=== PATIENT | female | born 1945 | race Caucasian/White ===

== ENCOUNTER 2019-09-03 14:52 | Emergency (ER) | payer SELFPAY ==
[~2019-09-03] VITALS: Ht 157.5 cm; Wt 61.7 kg
[2019-09-03 15:11] VITALS: BP 136/63
--- NOTE | 2019-09-03 15:15 | NUR ---
WAIT AT LOBBY.
--- NOTE | 2019-09-03 15:49 | NUR ---
PT WHEELCHAIR ASSISTED TO BED WITH GRANDDAUGHTER
--- NOTE | 2019-09-03 16:04 | NUR ---
BIB GRAND DAUGHTER C/O LEFT ANKLE PAIN/ SWELLING S/P FALL THIS MORNING. PT DENIES HITTING HEAD/LOC. PT STATES SHE "ROLLED HER ANKLE" AND FELL AT HOME. LEFT ANKLE IS SWOLLEN AND TENDER TO TOUCH. SKIN DRY AND IN TACT. NO REDNESS, ECCHYMOSIS NOTED. PT UNABLE TO BEAR WEIGHT ON LEFT LEG. PT REPORTS TO HAVE TAKEN TYLENOL ABOUT 4 HOURS AGO. NO PMH ALLERGIES: PENECILLIN
--- NOTE | 2019-09-03 16:35 | NUR ---
L ANKLE STIRRUP PLACED BY EMT. CRUTCHES GIVEN BY EMT. PT VERBALIZED UNDERSTANDING OF INSTRUCTION.
[2019-09-03 17:11] VITALS: BP 124/66
--- NOTE | 2019-09-03 17:12 | NUR ---
Patient discharged with v/s stable. Written and verbal after care instructions given and explained. Patient alert, oriented and verbalized understanding of instructions. Wheel Chair Assisted with to car. All questions addressed prior to discharge. ID band removed. Patient advised to follow up with PMD.NO Rx given. Patient educated on indication of medication including possible reaction and side effects. Opportunity to ask questions provided and answered.
== END 2019-09-03 17:12 | disposition home or self-care (01) ==
LOC: MED 14:52
DX: S93.402A Sprain of unspecified ligament of left ankle, initial encounter (principal); Z90.49 Acquired absence of other specified parts of digestive tract; Z88.0 Allergy status to penicillin; W19.XXXA Unspecified fall, initial encounter; Y93.89 Activity, other specified; Y92.098 Other place in other non-institutional residence as the place of occurrence of the external cause; Y99.8 Other external cause status
CPT/HCPCS: 73610; 99283